=== PATIENT | male | born 1970 | race Caucasian/White ===

== ENCOUNTER 2017-12-16 12:41 | Day surgery (SDC) | payer BC, SELFPAY ==
[2017-12-16 13:06] VITALS: BP 109/66; PULSE 40; RESP 16; TEMP 36.6; O2SAT 99; BMI 27.6
[2017-12-16] MEDS: SODIUM CHLORIDE 0.9% 1,000 ML 42 ML IV (13:19)
--- NOTE | 2017-12-16 14:12 | PM.HP.1 ---
History of Present Illness Date Patient Seen: 12/16/17 Time Patient Seen: 14:13 Chief complaint: colonoscopy [id number] Narrative: Screening for colorectal cancer. First colonoscopy. Father with history of colon polyps Patient History Family & Social History Social History: household members spouse Exam Vital Signs (past 8 hours): - 12/16/17 13:06 Temperature 97.9 F Pulse Rate 40 L Respiratory Rate 16 Blood Pressure 109/66 Pulse Oximetry 99 Oxygen Delivery Method Room Air Narrative Exam Narrative: Oropharynx free of lesion Chest clear to auscultation percussion Cardiac exam reveals no S3 or murmur Assessment & Plan Plan: Assessment/Plan Narrative: Assessment: Family history of colon polyps. Need for screening colonoscopy.
--- NOTE | 2017-12-16 14:45 | PM.PREOP ---
Pre-operative Note Interval Note Pre-op Check: Yes History & Physical Reviewed by Physician and Yes Exam Performed Changes: No
[2017-12-16] MEDS: fentaNYL 250 MCG/5 ML INJ IV (15:09)
[2017-12-16] MEDS: MIDAZOLAM 5 MG/5 ML VIAL IV (15:09)
--- NOTE | 2017-12-16 15:09 | PM.OP.ENDO ---
Operative Date/Time/Diagnoses Date of procedure: 12/16/17 Time of procedure: 15:09 Pre-op diagnosis: See indication and findings Post-op diagnosis: same Procedure & Clinicians Study performed: Colonoscopy Same procedure as scheduled: Yes Indications: Family history of colon polyps in first-degree relative, father. First colonoscopy Surgeon: Jae Garvey Procedure Notes Procedure in detail: After informed consent was obtained the patient was placed in left lateral decubitus position. The video colonoscope was placed the rectum slowly advanced cecum. On slow withdrawal mucosa was carefully examined. Preparation was good. The scope was removed. The patient tolerated the procedure well. Blood loss none Complications none Sedation: Fentanyl 150 mcg, Versed 6 mg IV titration Sedation time 18 min Findings One normal colonoscopy to cecum Patient will need follow-up colonoscopy in 5 years due to family history
[2017-12-16 15:12] VITALS: BP 99/63; PULSE 52; RESP 12; TEMP 36.6; O2SAT 95
[2017-12-16 15:17] VITALS: BP 103/70; PULSE 43; RESP 10; O2SAT 94
[2017-12-16 15:23] VITALS: BP 101/68; PULSE 51; RESP 14; TEMP 36.5; O2SAT 98
[2017-12-16 15:35] VITALS: BP 116/76; PULSE 42; RESP 15; TEMP 36.6; O2SAT 100
--- NOTE | 2017-12-16 15:54 | PM.OP.ENDO ---
Operative Date/Time/Diagnoses Date of procedure: 12/16/17 Time of procedure: 15:54 Pre-op diagnosis: See indication and findings Post-op diagnosis: same Procedure & Clinicians Study performed: EGD and colonoscopy Same procedure as scheduled: Yes Indications: Known cirrhosis, EGD screening to rule out varices. Also need for colorectal cancer screening. Surgeon: Jae Garvey Procedure Notes Procedure in detail: After informed consent was obtained the patient was placed in left lateral decubitus position. The video upper scope was placed into the oropharynx and gently passed into the esophagus. The esophagus stomach and duodenum were carefully examined. On withdrawal, retroflexed view the GE junction was performed. The scope was removed. The patient tolerated the procedure well. The patient was then turned and the colonoscope was substituted. This was introduced into the rectum and slowly passed the cecum. Preparation was good. On slow withdrawal mucosa was carefully examined. The scope was removed. The patient tolerated the procedure well. Blood loss none Complications none Sedation mac per anesthesia Findings EGD 1. Normal esophagus 2. Possible mild portal gastropathy 3. Normal duodenal bulb and sweep Colonoscopy 1. Normal colonoscopy to cecum Patient will need repeat upper endoscopy in 1 year and follow-up colonoscopy in 10 years.
== END 2017-12-16 15:43 | disposition home or self-care (01) ==
PROVIDERS: Visit Provider Internal Medicine Gastroenterology
PROC: 0DJD8ZZ Inspection of Lower Intestinal Tract, Via Natural or Artificial Opening Endoscopic (ICD-10-PCS; CPT 45378; principal; 2017-12-16 14:00)
DX: Z12.11 Encounter for screening for malignant neoplasm of colon (principal); Z83.71 Family history of colonic polyps
CPT/HCPCS: G0105; J2250; J3010